=== PATIENT | male | born 1995 | race African-American/Black ===

== ENCOUNTER 2016-10-18 20:22 | Emergency (ER) | payer OTHER ==
[~2016-10-18] VITALS: Ht 167.6 cm; Wt 59.0 kg
--- NOTE | 2016-10-18 21:27 | ED GI/GU/ABDOMINAL COMPLAINT ---
History of Present Illness General Chief Complaint: Nausea, Vomiting, Diarrhea Stated Complaint: N/V/D, FEVER, COUGHING Source: patient Exam Limitations: no limitations Vital Signs & Intake/Output Vital Signs & Intake/Output Vital Signs Date Time Temp Pulse Resp B/P Pulse O2 O2 Flow FiO2 Ox Delivery Rate 10/188 99.3 94 16 127/68 100 Room Air 10/18 2106 Room Air 10/18 2033 99.9 86 18 130/72 100 Room Air Room Air ED Intake and Output 10/19 0000 10/18 1200 Intake Total Output Total Balance Patient 130 lb Weight Allergies Coded Allergies: No Known Allergies (10/18/16) Reconcile Medications Dicyclomine Hydrochloride (Bentyl) 10 MG CAPSULE 1 CAP PO TID GASTROENTERITIS Ondansetron HCl (Zofran) 4 MG TABLET 1 TAB PO Q6-8P PRN NAUSEA Triage Note: TRIAGE: 21 Y/O MALE PRESENTS C/O +N/+V/+D, FEVER AT HOME X DAYS. TEMP 99.9 IN TRIAGE. REPORTS FAMILY MEMBERS SICK. Triage Nurses Notes Reviewed? yes Onset: Gradual Duration: constant Timing: single episode today Severity Numbers: 5 Location: generalized abdomen Radiation: no radiation Activities at Onset: none Prior Abdominal Problems: similar symptoms HPI: Patient is a 21-year-old male with an unremarkable past medical history presents emergency room stating that today he had acute onset of nausea vomiting diarrhea and sore throat symptoms in general is weakness and fatigue. Patient is intolerant of by mouth intake since symptoms began. Patient has positive sick contacts in the household and which mom was just seen at [facility] emergency room for similar complaints where she feels better. No recent antibiotic use. Positive fevers and body aches. Denies any cough denies any bright red blood or melena in stool. Denies any abdominal pain Past History Travel History Traveled to [place] past 21 day No Medical History Any Pertinent Medical History? none Neurological: NONE EENT: NONE Cardiovascular: NONE Respiratory: NONE Gastrointestinal: NONE Hepatic: NONE Renal: NONE Musculoskeletal: NONE Psychiatric: NONE Endocrine: NONE Blood Disorders: NONE Cancer(s): NONE [employer]/Reproductive: NONE Surgical History Surgical History: non-contributory Psychosocial History What is your primary language Kyrgyz Tobacco Use: Never used ETOH Use: denies use Illicit Drug Use: denies illicit drug use Family History Hx Contributory? No Review of Systems Review of Systems Constitutional: Reports: no symptoms. EENTM: Reports: see HPI, throat pain. Respiratory: Reports: no symptoms. Cardiovascular: Reports: no symptoms. GI: Reports: see HPI, diarrhea, nausea, vomiting. Genitourinary: Reports: no symptoms. Musculoskeletal: Reports: no symptoms. Skin: Reports: no symptoms. Neurological/Psychological: Reports: no symptoms. Hematologic/Endocrine: Reports: no symptoms. Immunologic/Allergic: Reports: no symptoms. All Other Systems: Reviewed and Negative Physical Exam Physical Exam General Appearance: no apparent distress, alert, comfortable Gastrointestinal: normal bowel sounds, soft, non-tender, no organomegaly Comments: Well-developed well-nourished person in no acute distress HEENT: Normal EENT exam, extraocular motion intact, no nystagmus. Pupils equally round and reactive to light and accommodation. Nose is atraumatic. External auditory canal and Tympanic membranes clear. Pharynx -mild erythema noted no exudates Neck: Supple, no lymphadenopathy, normal range of motion without pain or tenderness Back: Nontender, no CVA tenderness. Cardiovascular: Regular rate and rhythms no murmurs rubs or gallops, normal JVP Respiratory: Chest nontender. No respiratory distress.breath sounds clear to auscultation bilaterally Abdomen: Soft, nontender nondistended, no appreciable organomegaly. Normal bowel sounds. No ascites Extremity: No edema, no calf tenderness to palpation, normal and equal pulses. Neuro: Alert oriented x3, motor sensory normal, Skin: No appreciable rash on exposed skin, skin is warm and dry. Psych: Mood and affect is normal, memory and judgment is normal. Core Measures ACS in differential dx? No Severe Sepsis Present: No Septic Shock Present: No Progress Differential Diagnosis: AAA, AMI, appendicitis, biliary colic, bowel obstruction , cholecystitis, diverticulitis, epididymitis, esophageal varices, gastritis, hepatitis, hernia, hemorrhoids, ischemic bowel, inflamm bowel dis, Kennedi-Ankit tear, orchitis, pancreatitis, prostatitis, peptic ulcer, PUD/GERD, perforated viscous, pyelonephritis, SBO, STD, testicular torsion, ureterolithiasis, urinary retention, urethritis, UTI/pyelo Plan of Care: Orders Procedure Date/time Status THROAT CULTURE W/QUICK STREP 10/18 2132 Active COMPREHENSIVE METABOLIC PANEL 10/18 2132 Complete CBC WITHOUT DIFFERENTIAL 01/01 2133 Complete Laboratory Tests 01/01/17 2204: Anion Gap 11, Estimated GFR > 60, BUN/Creatinine Ratio 11.1, Glucose 93, Calcium 10.0, Total Bilirubin 0.8, AST 25, ALT 27, Alkaline Phosphatase 52, Total Protein 7.8, Albumin 4.9, Globulin 2.9, Albumin/Globulin Ratio 1.7, CBC w Diff NO MAN DIFF REQ, RBC 5.22, MCV 81.0, MCH 26.2 L, RDW 14.8 H, MPV 10.5 H, Gran % 92.2 H, Lymphocytes % 2.7 L, Monocytes % 4.9, Eosinophils % 0, Basophils % 0.2, Absolute Granulocytes 9.0 H, Absolute Lymphocytes 0.3 L, Absolute Monocytes 0.5, Absolute Eosinophils 0, Absolute Basophils 0, PUBS MCHC 32.3 L Patient currently looks well afebrile nontender abdomen Blood work was reviewed showing unremarkable findings. Patient states that he had improvement of his nausea patient will be currently by mouth challenged Due to history of present illness and exam findings my suspicion of gastroenteritis is high in which patient has similar sick contacts nontender abdomen Blood work was essentially unremarkable Patient tolerated by mouth on discharge. I strongly advised patient to return to emergency room if worsening symptoms occur especially appendicitis like symptoms and mom will comply. (SHYANNE BARNES,JEY) Initial ED EKG: none Departure Departure Disposition: HOME OR SELF CARE Condition: Stable Clinical Impression Primary Impression: Viral syndrome Secondary Impressions: Gastroenteritis Referrals: PATIENT HAS NO PRIMARY CARE DR (PCP/Family) Referred to [facility] as new patient No Additional Instructions: As discussed begin the prescription of Bentyl for your abdominal symptoms and begin the prescription of Zofran for future nausea. If no better in 2 days follow-up with her primary care doctor. If symptoms worsen or she develop any new concerning symptom return to the emergency room. Begin [id number] ibuprofen for pain and inflammation. Begin drinking plenty of water for hydration and a clear liquid and bland diet to rest her bowels Prescriptions are waiting AT your [facility] pharmacy Departure Forms: Customer Survey General Discharge Information Prescriptions: Current Visit Scripts Dicyclomine Hydrochloride (Bentyl) 1 CAP PO TID #6 CAP Ondansetron HCl (Zofran) 1 TAB PO Q6-8P PRN NAUSEA #10 TAB
[2016-10-18 22:10] LABS: ABSOLUTE BASOPHIL COUNT 0 /CUMM (0.0-0.2); ABSOLUTE EOSINOPHIL COUNT 0 /CUMM (0.0-0.7); ABSOLUTE LYMPH COUNT 0.3 /CUMM (1.2-3.4); ABSOLUTE MONOCYTE COUNT 0.5 /CUMM (0.10-0.60); BASOPHIL % 0.2 % (0.0-2.0); EOSINOPHIL % 0 % (0-5); GRANULOCYTE % 92.2 % (42.2-75.2); HEMATOCRIT 42.3 % (42-52); MEAN CORPUSCULAR HGB 26.2 PG (27.0-31.0); MEAN CORPUSCULAR HGB CONC 32.3 G/DL (33.0-37.0); MEAN PLATELET VOLUME 10.5 FL (7.4-10.4); PLATELET COUNT 165 /CUMM (130-400); RBC DISTRIBUTION WIDTH 14.8 % (11.5-14.5); RED BLOOD CELL CT 5.22 /CUMM (4.70-6.10)
[2016-10-18 22:32] LABS: WHITE BLOOD CELL COUNT 9.8 /CUMM (4.8-10.8)
[2016-10-18 22:58] VITALS: BP 127/68
[2016-10-18] MEDS ORDERED: ZOFRAN4 M2 PO (23:53)
[2016-10-18] MEDS ORDERED: BENTYL10 M1 PO (23:53)
== END 2016-10-18 23:57 ==
LOC: ERH 20:22
PROVIDERS: Physician Assistant
DX: K52.9 Noninfective gastroenteritis and colitis, unspecified (principal); B34.9 Viral infection, unspecified
CPT/HCPCS: 96361; 96374; J2405